=== PATIENT | female | born 1975 ===

== ENCOUNTER → 2021-07-02 | Day surgery (SDC) | payer MEDICARE ==
[~2021-07-02] VITALS: Ht 167.6 cm; Wt 108.9 kg
[~2021-07-02] MED LIST: AMITRIPTYLINE100 MG PO; ATIVAN1 MG PO; CELEBREX 100MG100 MG PO; CRESTOR20 M1 PO; DITROPAN5 MG PO; IBUPROFEN600 MG PO; OMEPRAZOLE40 MG PO; OXYCODONE HCL10 MG PO; PRAZOSIN HCL5 MG PO; PRINIVIL10 MG PO; ROBAXIN500 MG PO; SEROQUEL 100MG100 MG PO; TOPROL XL 25MG25 MG PO; VIT B 12 IM; VITAMIN D PO; ZOLOFT100 MG PO
[2021-07-02 07:52] LABS: BASOPHIL 0.6 % (0-2); EOSINOPHIL 2.3 % (0-5); HCT 37.2 % (37.0-47.0); HGB 12.2 g/dl (12.5-16.0); LYMPHOCYTE 30.9 % (15-48); MCH 32.9 pg (25.0-31.0); MCHC 32.8 g/dL (32.0-36.0); MCV 100.3 fL (78.0-100.0); MONOCYTE 3.9 % (0-12); MPV 10.1 fL (6.0-9.5); NEUTROPHIL 61.9 % (41-80); NRBC 0; PLT 221 K/uL (150-400); RBC 3.71 M/uL (4.20-5.40); RDW 13.8 % (11.5-14.0); WBC 10.8 K/uL (4.0-10.5)
== END | disposition home or self-care (01) ==
LOC: FAS 06:59
PROVIDERS: Oral & Maxillofacial Surgery
DX: K02.9 Dental caries, unspecified (principal); K04.7 Periapical abscess without sinus; K01.1 Impacted teeth; R73.03 Prediabetes; F17.210 Nicotine dependence, cigarettes, uncomplicated; J44.9 Chronic obstructive pulmonary disease, unspecified; G47.30 Sleep apnea, unspecified; I10 Essential (primary) hypertension; E78.5 Hyperlipidemia, unspecified; I25.10 Atherosclerotic heart disease of native coronary artery without angina pectoris; I25.2 Old myocardial infarction; G89.29 Other chronic pain; M54.9 Dorsalgia, unspecified; K21.9 Gastro-esophageal reflux disease without esophagitis; E66.9 Obesity, unspecified; Z68.38 Body mass index [BMI] 38.0-38.9, adult; Z79.899 Other long term (current) drug therapy
CPT/HCPCS: 36415; 71045; 85025; 93005; J1100; J1170; J2250; J2405; J2704; J2710; J3010; J7120